=== PATIENT | female | born 1950 | race Caucasian/White ===

== ENCOUNTER 2021-10-10 15:29 | Outpatient (CLI) | payer MEDICARE | END 2021-10-10 15:30 | disposition home or self-care (01) | LOC: SCSRAD 15:29 | PROVIDERS: ATTEND Student in an Organized Health Care Education/Training Program | DX: S99.921A Unspecified injury of right foot, initial encounter (principal) ==

== ENCOUNTER 2021-10-15 16:21 | Inpatient (IN) | payer OTHER, MEDICARE ==
[2021-10-15 17:11] LABS: #Eosinphils 0.6 thou/uL (0.0-0.7); #Lymphocytes 1.4 thou/uL (1.20-3.40); #Monocytes 0.3 thou/uL (0.11-0.59); %Basophils 0.2 % (0.0-1.0); %Eosinophils 4.6 % (0.0-10.0); %Lymphocytes 10.4 % (21.0-51.0); %Neutrophils 82.8 % (42.0-75.0); Hemoglobin 14.1 g/dL (12.0-16.0); Mean Corpuscular HGB CONC 32.8 g/dL (32.0-36.0); Mean Corpuscular Hemoglobin 30.7 pg (27.0-31.0); Mean Corpuscular Volume 93.7 fL (78.0-98.0); Mean Platelet Volume 7.7 fL (7.4-10.4); Platelet Count 265 thou/uL (130-400); RBC Distribution Width 13.1 % (11.5-14.5); Red Blood Cell (RBC) Count 4.59 mill/uL (4.20-5.40); White Blood Cell (WBC) Count 13.3 thou/uL (4.8-10.8)
[2021-10-15] MEDS ORDERED: Famotidine/PF 20 mg/2ml Vial ONE (17:21)
[2021-10-15] MEDS ORDERED: diphenhydrAMINE 50 MG/ML VIAL ONE (17:21)
[2021-10-15] MEDS ORDERED: methylPREDNISolone Sod Succ/PF 125 MG/2 ML VIAL ONE (17:21)
[2021-10-15] MEDS ORDERED: Cefepime 2 GM VIAL ONE (17:21)
[2021-10-15 17:37] LABS: ALT (SGPT) 18 U/L (8-55); AST (SGOT) 25 U/L (5-34); Albumin 3.9 g/dL (3.4-4.8); Alkaline Phosphatase 72 U/L (40-110); Anion Gap 16 mmol/L (10-20); BUN (Urea Nitrogen) 15 mg/dL (9.8-20.1); Bilirubin, Total 0.6 mg/dL (0.2-1.2); Calc. Creatinine Clearance 0 mL/min (70-130); Calcium 9.2 mg/dL (7.8-10.44); Carbon Dioxide 23 mmol/L (23-31); Chloride 104 mmol/L (98-107); Globulin 3.1 g/dL (2.4-3.5); Glucose 131 mg/dL (80-115); Potassium 4.5 mmol/L (3.5-5.1); Sodium 138 mmol/L (136-145)
[2021-10-15] MEDS ORDERED: Vancomycin 1 GM/200 ML BAG ONE (18:13)
[2021-10-15] MEDS ORDERED: hydrOXYzine 25 MG TAB ONE (19:02)
[2021-10-15 20:52] VITALS: BMI 43.4
[2021-10-15] MEDS ORDERED: Ondansetron PF 4 MG/2 ML Vial IVP PRN (22:00)
[2021-10-15] MEDS ORDERED: Ondansetron ODT 4 MG TAB SL PRN (22:00)
[2021-10-15] MEDS ORDERED: Acetaminophen 325 MG TAB PO PRN (22:00)
[2021-10-16] MEDS: diphenhydrAMINE 50 MG/ML VIAL IVP SCH ×2 (02:34→06:02)
[2021-10-16] MEDS ORDERED: Cefepime 2 GM in Sodium Chloride 0.9% 100 ML IVPB SCH (05:00)
[2021-10-16 08:36] LABS: Hemoglobin A1c 5.6 % (4.0-6.0)
[2021-10-16] MEDS ORDERED: methylPREDNISolone Sod Succ 40 MG VIAL IVP SCH (09:00)
[2021-10-16] MEDS ORDERED: diphenhydrAMINE 25 MG in Sodium Chloride 0.9% 50 ML IVPB SCH (10:00)
[2021-10-16] MEDS ORDERED: Non-Formulary Item 1 EACH (Tizanidine Hcl [Tizanidine Hcl] 2 MG Tablet) PO PRN (10:01)
[2021-10-16] MEDS ORDERED: tiZANidine HCl 4 MG TAB PO PRN (10:07)
[2021-10-16] MEDS ORDERED: diphenhydrAMINE 25 MG in Sodium Chloride 0.9% 50 ML IVPB PRN (11:56)
[2021-10-16] MEDS ORDERED: Cetirizine HCl 10 MG TAB PO SCH (12:01)
[2021-10-16 12:03] LABS: SARS-CoV-2 PCR by NAA Not Detected (NotDetected)
[2021-10-16] MEDS: diphenhydrAMINE 25 MG CAP PO SCH ×3 (12:28→20:26)
[2021-10-16] MEDS: Calamine/Zinc Oxide 177 ML LOTION TP SCH ×3 (13:21→20:34)
[2021-10-16] MEDS: Acetaminophen 325 MG TAB PO PRN ×2 (13:58→21:05)
[2021-10-16 14:01] LABS: #Eosinphils 0.1 thou/uL (0.0-0.7); #Lymphocytes 1.6 thou/uL (1.20-3.40); #Monocytes 0.4 thou/uL (0.11-0.59); #Neutrophils 13.6 thou/uL (1.40-6.50); %Basophils 0.3 % (0.0-1.0); %Eosinophils 0.4 % (0.0-10.0); %Lymphocytes 9.9 % (21.0-51.0); %Monocytes 2.7 % (0.0-10.0); %Neutrophils 86.7 % (42.0-75.0); Hemoglobin 13.8 g/dL (12.0-16.0); Mean Corpuscular HGB CONC 32.7 g/dL (32.0-36.0); Mean Corpuscular Volume 94.7 fL (78.0-98.0); Mean Platelet Volume 8.4 fL (7.4-10.4); Platelet Count 278 thou/uL (130-400); RBC Distribution Width 13.1 % (11.5-14.5); Red Blood Cell (RBC) Count 4.45 mill/uL (4.20-5.40); White Blood Cell (WBC) Count 15.7 thou/uL (4.8-10.8)
[2021-10-16 14:13] LABS: ALT (SGPT) 19 U/L (8-55); AST (SGOT) 21 U/L (5-34); Albumin 4.1 g/dL (3.4-4.8); Alkaline Phosphatase 70 U/L (40-110); Anion Gap 17 mmol/L (10-20); BUN (Urea Nitrogen) 18 mg/dL (9.8-20.1); Bilirubin, Total 0.5 mg/dL (0.2-1.2); Calc. Creatinine Clearance 87 mL/min (70-130); Calcium 9.4 mg/dL (7.8-10.44); Carbon Dioxide 24 mmol/L (23-31); Chloride 104 mmol/L (98-107); Globulin 3.3 g/dL (2.4-3.5); Glucose 136 mg/dL (80-115); Magnesium 2.1 mg/dL (1.6-2.6); Potassium 3.8 mmol/L (3.5-5.1); Protein, Total 7.4 g/dL (5.8-8.1); Sodium 141 mmol/L (136-145)
[2021-10-16] MEDS: Famotidine 20 MG TAB PO SCH (20:26)
[2021-10-17] MEDS: diphenhydrAMINE 25 MG CAP PO SCH ×5 (01:17→12:39)
[2021-10-17 06:09] LABS: Hemoglobin 12.5 g/dL (12.0-16.0); Mean Corpuscular HGB CONC 31.7 g/dL (32.0-36.0); Mean Corpuscular Hemoglobin 30.5 pg (27.0-31.0); Mean Platelet Volume 8.1 fL (7.4-10.4); Platelet Count 237 thou/uL (130-400); RBC Distribution Width 13.2 % (11.5-14.5); Red Blood Cell (RBC) Count 4.11 mill/uL (4.20-5.40); White Blood Cell (WBC) Count 20.8 thou/uL (4.8-10.8)
[2021-10-17 06:25] LABS: Band 3 % (5-11); Eosinophils 5 % (0-10); Lymphocytes 11 % (21-51); MDiff Complete? YES; Monocytes 4 % (0-10); Neutrophil 77 % (42-75)
[2021-10-17 06:31] LABS: ALT (SGPT) 27 U/L (8-55); AST (SGOT) 47 U/L (5-34); Albumin 3.6 g/dL (3.4-4.8); Alkaline Phosphatase 58 U/L (40-110); Anion Gap 9 mmol/L (10-20); BUN (Urea Nitrogen) 22 mg/dL (9.8-20.1); Bilirubin, Direct 0.2 mg/dL (0.1-0.3); Bilirubin, Total 0.4 mg/dL (0.2-1.2); CRP (Inflammatory) 0.74 mg/dL (= or < 0.5); Calc. Creatinine Clearance 100 mL/min (70-130); Calcium 9.1 mg/dL (7.8-10.44); Carbon Dioxide 31 mmol/L (23-31); Cardiac Risk 4.2 (Less than 4.5); Chloride 107 mmol/L (98-107); Cholesterol 179 mg/dl (< 200 Desired); Glucose 113 mg/dL (80-115); HDL Cholesterol 43 mg/dL (>60 Neg Risk); LDL Cholesterol, Calculated 121 mg/dL; Magnesium 2.4 mg/dL (1.6-2.6); Potassium 4.3 mmol/L (3.5-5.1); Protein, Total 6.4 g/dL (5.8-8.1); Sodium 143 mmol/L (136-145); Triglycerides 77 mg/dL (Less than 150)
[2021-10-17] MEDS ORDERED: predniSONE 20 MG TAB PO SCH (08:00)
[2021-10-17 08:06] VITALS: BP 143/63; TEMP 98.8
[2021-10-17] MEDS: Famotidine 20 MG TAB PO SCH (08:37)
[2021-10-17] MEDS: Calamine/Zinc Oxide 177 ML LOTION TP SCH ×2 (08:39→12:39)
[2021-10-17] MEDS ORDERED: Amlodipine 5 MG TAB PO SCH (09:00)
[2021-10-17] MEDS ORDERED: Loratadine 10 MG TAB PO SCH (09:00)
[2021-10-17] MEDS ORDERED: Folic Acid 1 MG TAB PO SCH (09:00)
[2021-10-17] MEDS ORDERED: Non-Formulary Item 1 EACH (Vitamin B Complex [Vitamin B Complex] 1 CAP Capsule) PO SCH (09:00)
[2021-10-17] MEDS ORDERED: Non-Formulary Item 1 EACH (Folic Acid [Folic Acid] 0.4 MG Tablet) PO SCH (09:00)
[2021-10-17] MEDS ORDERED: Stress 600 With Zinc 1 TAB PO SCH (09:00)
[2021-10-17] MEDS ORDERED: Furosemide 20 MG TAB PO SCH (09:00)
== END 2021-10-17 14:02 | disposition home or self-care (01) | DRG 607 ==
LOC: ERS 16:21 → T4-A 18:55
PROVIDERS: ADMIT Internal Medicine; ATTEND Family Medicine
DX: L25.1 Unspecified contact dermatitis due to drugs in contact with skin (principal); E03.9 Hypothyroidism, unspecified; L27.0 Generalized skin eruption due to drugs and medicaments taken internally; T36.4X5A Adverse effect of tetracyclines, initial encounter; S82.892A Other fracture of left lower leg, initial encounter for closed fracture; W10.9XXA Fall (on) (from) unspecified stairs and steps, initial encounter; L50.9 Urticaria, unspecified; N18.32 Chronic kidney disease, stage 3b; I12.9 Hypertensive chronic kidney disease with stage 1 through stage 4 chronic kidney disease, or unspecified chronic kidney disease; Z20.822 Contact with and (suspected) exposure to COVID-19; Z90.49 Acquired absence of other specified parts of digestive tract; Z87.891 Personal history of nicotine dependence; Z88.1 Allergy status to other antibiotic agents; Z88.2 Allergy status to sulfonamides; Z88.8 Allergy status to other drugs, medicaments and biological substances; Y92.9 Unspecified place or not applicable; Y92.62 Dock or shipyard as the place of occurrence of the external cause
CPT/HCPCS: 36415; 80048; 80053; 80061; 80076; 83036; 83735; 84443; 85025; 85652; 86140; 87040; 87081; 93005; 93010; 96365; 96367; 96375; J0692; J1200; J2920; J2930; J3370; J3490; J7512; S0028; U0003; U0005

== ENCOUNTER 2021-10-20 13:39 | Outpatient (CLI) | payer MEDICARE ==
[2021-10-21 00:02] LABS: SARS-CoV-2 PCR by NAA Not Detected (NotDetected)
== END 2021-10-20 13:40 | disposition home or self-care (01) ==
LOC: LABBT 13:39
PROVIDERS: ATTEND Orthopaedic Surgery
DX: Z01.818 Encounter for other preprocedural examination (principal); S82.851A Displaced trimalleolar fracture of right lower leg, initial encounter for closed fracture; Z20.822 Contact with and (suspected) exposure to COVID-19
CPT/HCPCS: 93005; U0003; U0005; 93010

== ENCOUNTER 2021-10-22 11:47 | Day surgery (SDC) | payer MEDICARE ==
[2021-10-21 12:31] VITALS: BMI 38.6
[2021-10-22] MEDS ORDERED: CEFAZOLIN 2 GM VIAL ONE (12:40)
[2021-10-22] MEDS ORDERED: Sodium Chloride 0.9% 100 ML ONE (12:41)
[2021-10-22] MEDS ORDERED: Lidocaine 1% MPF 2 ML VIAL ONE (12:41)
[2021-10-22] MEDS ORDERED: Fentanyl 100 MCG/2 ML VIAL ONE (13:44)
[2021-10-22] MEDS ORDERED: Midazolam HCl 2 mg/2 ml Vial ONE (13:44)
[2021-10-22] MEDS ORDERED: Lidocaine 1% (PF) 30 ML VIAL ONE (13:46)
[2021-10-22] MEDS ORDERED: Ondansetron PF 4 MG/2 ML Vial ONE (13:58)
[2021-10-22] MEDS ORDERED: Scopolamine 1.5 mg/72 hour Patch ONE (13:58)
[2021-10-22] MEDS ORDERED: fentaNYL Citrate/PF 100 MCG/2 ML SYRINGE ONE (16:10)
== END 2021-10-22 17:54 | disposition home or self-care (01) ==
LOC: SDC 11:47
PROVIDERS: ATTEND Orthopaedic Surgery
PROC: 0QSJ04Z Reposition Right Fibula with Internal Fixation Device, Open Approach (ICD-10-PCS; principal; 2021-10-22)
PROC: 0QSG04Z Reposition Right Tibia with Internal Fixation Device, Open Approach (ICD-10-PCS; 2021-10-22)
PROC: 3E0T3BZ Introduction of Anesthetic Agent into Peripheral Nerves and Plexi, Percutaneous Approach (ICD-10-PCS; 2021-10-22)
PROC: 3E0T3BZ Introduction of Anesthetic Agent into Peripheral Nerves and Plexi, Percutaneous Approach (ICD-10-PCS; 2021-10-22)
DX: S82.841A Displaced bimalleolar fracture of right lower leg, initial encounter for closed fracture (principal); E03.9 Hypothyroidism, unspecified; I10 Essential (primary) hypertension; L25.9 Unspecified contact dermatitis, unspecified cause; Z87.891 Personal history of nicotine dependence; Z79.52 Long term (current) use of systemic steroids; Z79.890 Hormone replacement therapy; Z79.899 Other long term (current) drug therapy; Z88.1 Allergy status to other antibiotic agents; Z88.2 Allergy status to sulfonamides; Z88.6 Allergy status to analgesic agent; W19.XXXA Unspecified fall, initial encounter
CPT/HCPCS: 76000; C1713; J2001; J2250; J2405; J3010; J3490

== ENCOUNTER 2021-12-18 13:27 | Outpatient (CLI) | payer MEDICARE | END 2021-12-18 13:28 | disposition home or self-care (01) | LOC: BICULT 13:27 | PROVIDERS: ATTEND Student in an Organized Health Care Education/Training Program | DX: R92.8 Other abnormal and inconclusive findings on diagnostic imaging of breast (principal) ==

== ENCOUNTER → 2021-12-26 | Day surgery (SDC) | payer MEDICARE | LOC: BICULT 12:31 | PROVIDERS: ATTEND Student in an Organized Health Care Education/Training Program | DX: R92.8 Other abnormal and inconclusive findings on diagnostic imaging of breast (principal); Z53.9 Procedure and treatment not carried out, unspecified reason ==